=== PATIENT | male | born 1950 | race Caucasian/White ===

== ENCOUNTER 2022-04-14 08:51 | Day surgery (SDC) | payer MEDICARE, BC ==
[2022-04-14] VITALS (10 sets, daily range): BP systolic 112–135; BP diastolic 68–88; PULSE 56–71; TEMP 97.6–98.4
[~2022-04-14] VITALS: Ht 185.4 cm; Wt 95.2 kg
[~2022-04-14 08:51] MED LIST: PERCOCET 325 MG1 TA2 PO; ZOFRAN ODT8 MG PO
[2022-04-14] MEDS ORDERED: PROSCAR 5MG5 MG PO (09:15)
[2022-04-14] MEDS ORDERED: FLOMAX 0.40.4 MG/CAP PO (09:15)
--- NOTE | 2022-04-14 22:07 | NUR ---
Patient given PRN Percocet for pain at time of assessment. Continues to have bladder discomfort, and given PRN Levsin per orders. CBI continues, decreased to slow rate, output light pink and clear. IV fluids running in peripheral IV to left hand. Denies having any questions, needs, or concerns at this time. In bed with call light within reach.
[2022-04-15 03:51] VITALS: BP 111/68; PULSE 70; TEMP 96
--- NOTE | 2022-04-15 06:27 | NUR ---
Patient continues on CBI per orders. Running slow, urine clear and pink, no clots noted. Voices no questions, needs, or concerns at this time. Recieved PRN pain medication per orders during the night as requested.
[2022-04-15 07:29] VITALS: BP 108/63; PULSE 61; TEMP 98.3
--- NOTE | 2022-04-15 09:21 | NUR ---
Initial visit; Patient and family thanked Brand Coordinator for looking in on him and offering God's blessings. Brand Coordinator will keep Omar in her prayers.
[2022-04-15 12:29] VITALS: BP 111/68; PULSE 76; TEMP 98.3
--- NOTE | 2022-04-15 16:30 | NUR ---
family service caseworker met with patient and his daughter to discuss discharge planning. Patient states that he lives at home with his spouse and will return there upon discharge. Patient and daughter deny any concerns about patient returning home and state patient is independent with his activities of daily living. Patient states that his primary care provider is Dr Babb. Patient states that he doesn't have advance directives. Worker offered assistance with directives if patient desired. Patient states that he has insurance coverage for prescriptions.
== END 2022-04-15 16:50 | disposition home or self-care (01) ==
LOC: SDCO 08:51 → SURG 14:23 → SDCO 04-15 16:50
DX: N40.1 Benign prostatic hyperplasia with lower urinary tract symptoms (principal); C61 Malignant neoplasm of prostate; R39.12 Poor urinary stream; R39.14 Feeling of incomplete bladder emptying; R35.0 Frequency of micturition
CPT/HCPCS: OP; J0690; J1100; J2175; J2270; J2405; J2704; J3010; J7120